=== PATIENT | female | born 1955 ===

== ENCOUNTER 2021-08-02 07:06 | Inpatient (IN) ==
[~2021-08-02 07:06] MED LIST: Buffered Lidocaine 1% SYRIN 1 ml INTRADERM ONE; Famotidine IV 10 MG/ML 2 ml VIAL (20 mg) IV ONE; Lactated Ringers 1000 ml BAG 1,000 ML IV SCH
[2021-08-02] MEDS ORDERED: Famotidine IV 10 MG/ML 2 ml VIAL (20 mg) ONE (07:44)
[2021-08-02] MEDS ORDERED: ceFAZolin 2 GM in NS PREMIX 2 GM/100 ML BAG IVPB ONE (07:44)
[2021-08-02] MEDS ORDERED: Ondansetron 4 mg VIAL 2 MG/ML 2 ml VIAL ONE (09:13)
[2021-08-02] MEDS ORDERED: Lidocaine 2% PF 5 ML VIAL ONE (09:13)
[2021-08-02] MEDS ORDERED: Propofol 10 MG/ML 20 ML BTL ONE (09:13)
[2021-08-02] MEDS ORDERED: Midazolam 2 mg/2 ml VIAL 1 mg/ml 2 ml VIAL (2 mg) ONE (09:13)
[2021-08-02] MEDS ORDERED: Rocuronium 50 mg VIAL 10 mg/ml 5 ml VIAL (50 mg) ONE ×2 (09:13→09:46)
[2021-08-02] MEDS ORDERED: fentaNYL 250 mcg/5 ml 50 MCG/ML 5 ml VIAL (250 MCG) ONE (09:13)
[2021-08-02] MEDS ORDERED: Dexamethasone IV 4 MG/ML VIAL 1 ml VIAL ONE (09:13)
[2021-08-02] MEDS ORDERED: ROPIVACAINE 5 MG/ML 30 ML BTL (0.5%) ONE (09:18)
[2021-08-02] MEDS ORDERED: Ketamine HCL 50 mg/ml 10 ml VIAL (500 MG) ONE (10:00)
[2021-08-02] MEDS ORDERED: Phenylephrine 40 mcg/mL 10mL (400mcg) SYRINGE ONE (10:02)
[2021-08-02] MEDS ORDERED: Ondansetron 4 mg VIAL 2 MG/ML 2 ml VIAL IV PRN ×2 (10:42→11:14)
[2021-08-02] MEDS ORDERED: diPHENhydraMINE IV 50 MG/ML 1 ml VIAL (BENADRYL) IV PRN (10:42)
[2021-08-02] MEDS ORDERED: Lactulose 30 ml UDC PO PRN (10:42)
[2021-08-02] MEDS ORDERED: Morphine 2 MG/ML SYRINGE IV PRN (10:42)
[2021-08-02] MEDS ORDERED: Magnesium Hydroxide LIQ 30 ML UDC PO PRN (10:42)
[2021-08-02] MEDS ORDERED: Ondansetron ODT 4 mg TAB 4 MG TAB PO PRN (10:42)
[2021-08-02] MEDS ORDERED: diPHENhydraMINE 25 mg TAB PO PRN (10:42)
[2021-08-02] MEDS ORDERED: HYDROmorphone 1 MG/1 ML SYRINGE ONE (11:07)
[2021-08-02] MEDS ORDERED: Naloxone 0.4 mg VIAL 0.4 mg/ml 1 ml VIAL IV PRN (11:14)
[2021-08-02] MEDS ORDERED: HYDROmorphone 1 MG/1 ML SYRINGE IV PRN (11:14)
[2021-08-02] MEDS ORDERED: fentaNYL 100 mcg/2 ml 50 MCG/ML VIAL IV PRN (11:14)
[2021-08-02] MEDS ORDERED: fentaNYL 100 mcg/2 ml 50 MCG/ML VIAL ONE (13:13)
[2021-08-02] MEDS: Lactated Ringers 1000 ml BAG 1,000 ML IV SCH (15:10)
[2021-08-02] MEDS: ceFAZolin 1 GM ADVAN 1 GM in NS 0.9% 50 ML 50 ML IVPB SCH (17:38)
[2021-08-02] MEDS: Magnesium Hydroxide LIQ 30 ML UDC PO SCH (20:32)
[2021-08-03] MEDS: ceFAZolin 1 GM ADVAN 1 GM in NS 0.9% 50 ML 50 ML IVPB SCH ×2 (01:54→09:09)
[2021-08-03] MEDS: Lactated Ringers 1000 ml BAG 1,000 ML IV SCH (02:18)
[2021-08-03 07:00] LABS: Hematocrit 31 % (35-47); Platelet Count 217 10^3/uL (150-450)
[2021-08-03 07:16] LABS: Calcium 9.1 mg/dL (8.6-10.3); Potassium 4.2 mmol/L (3.5-5.0)
[2021-08-03] MEDS ORDERED: Vitamin THERAPEUTIC TAB PO SCH (09:00)
[2021-08-03] MEDS: Magnesium Hydroxide LIQ 30 ML UDC PO SCH (09:09)
[2021-08-03 12:06] VITALS: BP 123/52
== END 2021-08-03 16:45 | disposition home or self-care (01) | DRG 470 ==
LOC: AA 07:06 → SSU 10:43
PROVIDERS: ADMIT Orthopaedic Surgery Adult Reconstructive Orthopaedic Surgery; ATTEND Orthopaedic Surgery Adult Reconstructive Orthopaedic Surgery